=== PATIENT | male | born 1945 | race Caucasian/White ===

== ENCOUNTER 2016-07-10 12:29 | Emergency (ER) | payer OTHER ==
[2015-07-26 12:24] VITALS: BMI 22.4
[~2016-07-10 12:29] MED LIST: ALBUTEROL0.63 MG/3; ALDACTONE25 MG PO; CARAFATE1 G PO; COLACE100 MG PO; COREG 3.1253.125 MG PO; GLUCOPHAGE500 MG; GLUCOPHAGE500 MG PO; GLUCOTROL ER2.5 MG; GLUCOTROL ER2.5 MG PO; IPRAT-ALBUT 0.5-3 ML UPD; K-DUR20 MEQ PO; LASIX20 MG; LASIX20 MG PO; LEVAQUIN500 MG PO; LIPITOR20 MG; LISINOPRIL2.5 MG; LISINOPRIL2.5 MG PO; MIRALAX17 GM PO; PREDNISONE20 MG PO; PROAIR HFA8.5 GM INH; PROTONIX20 MG; PROTONIX40 MG PO; PROVENTIL/2.5 MG/3 M INH; SPIRIVA18 MCG INH; SYMBICORT 80-10.2 GM INH; TOPROL XL100 MG PO
[2016-07-10 13:25] LABS: BASOPHILS 0.2 % (0.0-2.0); EOSINOPHILS 0.2 % (0-7); HEMATOCRIT 48.3 % (42.0-54.0); HEMOGLOBIN 16.5 g/dL (13.5-17.5); IMMATURE GRANULOCYTES 0.3 % (0-5); MCH 31.7 pg (26.0-34.0); MCHC 34.2 g/dL (31.0-37.0); MCV 92.9 fL (80.0-100.0); MEAN PLATELET VOLUME 11.4 fL (7.4-10.4); MONOCYTES 7.9 % (2-11); NEUTROPHILS 79.4 % (40-80); PLATELET COUNT 152 10x3/uL (130-400); RDW 15.5 % (11.5-14.5); WBC 12.7 10x3/uL (4.8-10.8)
[2016-07-10 13:42] LABS: ALBUMIN 3.5 g/dL (3.4-5.0); ALKALINE PHOSPHATASE 101 U/L (46-116); ALT (SGPT) 25 U/L (10-68); BILIRUBIN - TOTAL 3.66 mg/dL (0.2-1.3); CALC OSMOLALITY 288 mosm/kg (275-300); CALCIUM 8.8 mg/dL (8.5-10.1); CARBON DIOXIDE 24.6 mmol/L (21.0-32.0); CHLORIDE - SERUM 105 mmol/L (98-107); POTASSIUM - SERUM 4.3 mmol/L (3.5-5.1); PROTEIN - SERUM 7.2 g/dL (6.4-8.2); SODIUM 142 mmol/L (136-145); UREA NITROGEN 25 mg/dL (7-18); eGFR NON AFRICAN AMERICAN 78 mL/min (90-120)
[2016-07-10 13:43] LABS: GLUCOSE 138 mg/dL (74-106)
[2016-07-10 14:06] LABS: CREATINE KINASE 674 UL (21-232)
== END 2016-07-10 18:39 | disposition short-term general hospital (02) ==
LOC: D.ER 12:29
PROVIDERS: Emergency Medicine
DX: S72.21XA Displaced subtrochanteric fracture of right femur, initial encounter for closed fracture (principal); S72.141A Displaced intertrochanteric fracture of right femur, initial encounter for closed fracture; W01.0XXA Fall on same level from slipping, tripping and stumbling without subsequent striking against object, initial encounter; Y93.89 Activity, other specified; Y92.010 Kitchen of single-family (private) house as the place of occurrence of the external cause; I50.9 Heart failure, unspecified; J44.9 Chronic obstructive pulmonary disease, unspecified; I10 Essential (primary) hypertension

== ENCOUNTER 2016-10-03 10:16 | Emergency (ER) | payer OTHER ==
[2015-07-26 12:24] VITALS: BMI 22.4
[2016-10-03 11:06] LABS: BASOPHILS 0.4 % (0-2); EOSINOPHILS 0.8 % (0-7); HEMATOCRIT 34.4 % (42.0-54.0); HEMOGLOBIN 10.9 g/dL (13.5-17.5); IMMATURE GRANULOCYTES 0.2 % (0-5); LYMPHOCYTES 13.8 % (15-50); MCH 27.8 pg (26.0-34.0); MCHC 31.7 g/dL (31.0-37.0); MCV 87.8 fL (80.0-100.0); MONOCYTES 7.8 % (2-11); RBC 3.92 10x6/uL (4.20-6.10); RDW 14.4 % (11.5-14.5); WBC 8.6 10x3/uL (4.8-10.8)
[2016-10-03 11:09] LABS: PLATELET COUNT 192 10x3/uL (130-400)
[2016-10-03 11:26] LABS: ALKALINE PHOSPHATASE 101 U/L (46-116); ALT (SGPT) 16 U/L (10-68); AMYLASE - SERUM 58 U/L (25-115); BILIRUBIN - TOTAL 1.23 mg/dL (0.2-1.3); CALC OSMOLALITY 285 mosm/kg (275-300); CALCIUM 8.6 mg/dL (8.5-10.1); CARBON DIOXIDE 24.2 mmol/L (21.0-32.0); CHLORIDE - SERUM 107 mmol/L (98-107); GLUCOSE 130 mg/dL (74-106); LIPASE 123 U/L (73-393); POTASSIUM - SERUM 4.4 mmol/L (3.5-5.1); PROTEIN - SERUM 6.9 g/dL (6.4-8.2); SODIUM 141 mmol/L (136-145); UREA NITROGEN 22 mg/dL (7-18); eGFR NON AFRICAN AMERICAN 78 mL/min (90-120)
== END 2016-10-03 16:03 | disposition short-term general hospital (02) ==
LOC: D.ER 10:16
PROVIDERS: Family Medicine
DX: R11.10 Vomiting, unspecified (principal); K74.60 Unspecified cirrhosis of liver; J44.9 Chronic obstructive pulmonary disease, unspecified; I50.9 Heart failure, unspecified; I10 Essential (primary) hypertension

== ENCOUNTER 2017-04-27 17:17 | Emergency (ER) | payer MEDICARE, OTHER ==
[2015-07-26 12:24] VITALS: BMI 22.4
== END 2017-04-27 19:19 | disposition home or self-care (01) ==
LOC: D.ER 17:17
DX: S76.912A Strain of unspecified muscles, fascia and tendons at thigh level, left thigh, initial encounter (principal); W01.0XXA Fall on same level from slipping, tripping and stumbling without subsequent striking against object, initial encounter; Y93.89 Activity, other specified; Y92.512 Supermarket, store or market as the place of occurrence of the external cause; J44.9 Chronic obstructive pulmonary disease, unspecified; I10 Essential (primary) hypertension

== ENCOUNTER 2019-01-29 19:04 | Emergency (ER) | payer OTHER ==
[~2019-01-29] VITALS: Ht 190.5 cm; Wt 77.3 kg
[2019-01-29 19:05] VITALS: Ht 190.5 cm; Wt 77.3 kg
[2019-01-29 19:43] LABS: BASOPHILS 0.3 % (0-2); EOSINOPHILS 0.8 % (0-7); HEMATOCRIT 38.9 % (42.0-54.0); HEMOGLOBIN 13.3 g/dL (13.5-17.5); IMMATURE GRANULOCYTES 0.5 % (0-5); LYMPHOCYTES 9.5 % (15-50); MCH 28.2 pg (26.0-34.0); MCHC 34.2 g/dL (31.0-37.0); MCV 82.6 fL (80.0-100.0); MEAN PLATELET VOLUME 11.1 fL (7.4-10.4); MONOCYTES 7.3 % (2-11); NEUTROPHILS 81.6 % (40-80); PLATELET COUNT 122 10x3/uL (130-400); RBC 4.71 10x6/uL (4.20-6.10); RDW 17.7 % (11.5-14.5); WBC 6.2 10x3/uL (4.8-10.8)
[2019-01-29 19:52] LABS: APTT 33.7 SECONDS (22.8-39.4); INR 1.53 (0.85-1.17); PROTIME 17.8 SECONDS (11.6-15.0)
[2019-01-29 19:57] LABS: ALBUMIN 3.3 g/dL (3.4-5.0); ANION GAP 14.8 mmol/L (8-16); BILIRUBIN - TOTAL 2.15 mg/dL (0.2-1.3); CALCIUM 8.9 mg/dL (8.5-10.1); CARBON DIOXIDE 22.7 mmol/L (21.0-32.0); CREATININE - SERUM 1.2 mg/dL (0.6-1.3); POTASSIUM - SERUM 3.5 mmol/L (3.5-5.1)
[2019-01-29 20:07] LABS: MAGNESIUM - SERUM 1.7 mg/dL (1.8-2.4); THYROID STIMULATING HORMONE 1.75 uIU/mL (0.36-3.74); TROPONIN-I 0.048 ng/mL (0.000-0.060)
[2019-01-29 23:05] VITALS: BP 149/80
== END 2019-01-29 23:06 | disposition short-term general hospital (02) ==
LOC: D.ER 19:04
PROVIDERS: Family Medicine
DX: R53.1 Weakness (principal)